=== PATIENT | male | born 1995 | race Two or more races ===

== ENCOUNTER 2020-01-10 16:52 | Emergency (ER) | payer OTHER ==
[~2020-01-10] VITALS: Ht 175.3 cm; Wt 72.6 kg
== END 2020-01-10 20:59 | disposition home or self-care (01) ==
LOC: ER 16:52
DX: K51.00 Ulcerative (chronic) pancolitis without complications (principal); R10.31 Right lower quadrant pain
CPT/HCPCS: 74177; Q9965

== ENCOUNTER → 2020-01-10 | Emergency (ER) | payer OTHER ==
[~2020-01-10] VITALS: Ht 175.3 cm; Wt 72.6 kg
== END | disposition left against medical advice (07) ==
LOC: ER 13:33
DX: Z53.20 Procedure and treatment not carried out because of patient's decision for unspecified reasons (principal)